=== PATIENT | male | born 1980 | race Caucasian/White ===

== ENCOUNTER 2019-06-05 16:50 | Inpatient (IN) | payer BC ==
[~2019-06-05] VITALS: Ht 190.5 cm; Wt 95.0 kg
[2019-06-05] VITALS (9 sets, daily range): BP systolic 140–149; BP diastolic 92–102
[2019-06-05] MEDS ORDERED: ketorolac trometh. 30mg/ml inj. IV ONE (17:40)
[2019-06-05] MEDS ORDERED: normal saline 1000ML IV soln IVB ONE (17:40)
[2019-06-05 17:45] LABS: BASOPHILS % (AUTO) 0.3 % (0-1); EOSINOPHILS # (AUTO) 0.2 X10'3 (0-0.9); EOSINOPHILS % (AUTO) 1.9 % (0-6); HEMATOCRIT 42.9 % (42.0-52.0); HEMOGLOBIN 15.2 g/dl (14.0-17.9); LYMPHOCYTES # (AUTO) 2.4 X10'3 (1.1-4.8); LYMPHOCYTES % (AUTO) 19.8 % (21-51); MEAN CORPUSCULAR HEMOGLOBIN 33.1 PG (27.0-31.0); MEAN CORPUSCULAR HGB CONC 35.3 g/dL (33.0-36.5); MEAN CORPUSCULAR VOLUME 93.5 FL (78-98); MEAN PLATELET VOLUME 8.9 FL (7.4-10.4); MONOCYTES # (AUTO) 0.7 X10'3 (0-0.9); MONOCYTES % (AUTO) 5.5 % (2-12); NEUTROPHILS # (AUTO) 8.9 X10'3 (1.8-7.7); NEUTROPHILS % (AUTO) 72.5 % (42-75); PLATELET COUNT 201 X10'3 (140-440); RED BLOOD COUNT 4.59 X10'6 (4.70-6.10); RED CELL DISTRIBUTION WIDTH 12.8 % (11.5-14.5); WHITE BLOOD COUNT 12.3 X10'3 (4.5-11.0)
[2019-06-05 17:48] LABS: CLARITY,URINE CLEAR (Clear); COLOR,URINE YELLOW (Yellow); GLUCOSE, URINE NEGATIVE (Neg); KETONES,URINE NEGATIVE (Neg); LEUKOCYTE ESTERASE ,URINE NEGATIVE (Neg); NITRITES, URINE NEGATIVE (Neg); OCCULT BLOOD,URINE NEGATIVE (Neg); PROTEIN,URINE NEGATIVE (Neg); UROBILINOGEN,URINE 0.2 E.U/dL (0.2-1.0)
[2019-06-05 17:49] LABS: UA COLLECTION TYPE CLN CATCH MIDSTREAM
[2019-06-05 17:59] LABS: ALANINE AMINOTRANSFERASE 54 U/L (12-78); ALBUMIN 3.8 G/DL (3.4-5.0); ALBUMIN/GLOBULIN RATIO 1.2 (1.1-1.5); ALKALINE PHOSPHATASE 135 IU/L (46-116); ANION GAP 1 (8-16); ASPARTATE AMINO TRANSFERASE 32 U/L (10-37); BILIRUBIN,TOTAL 0.4 MG/DL (0.1-1.0); BLOOD UREA NITROGEN 12 MG/DL (7-18); BUN/CREATININE RATIO 11.2 (5.4-32.0); CHLORIDE 106 MMOL/L (99-107); CREATININE 1.07 MG/DL (0.60-1.10); GLUCOSE 100 MG/DL (70-104); LIPASE 145 U/L (73-393); POTASSIUM 4.1 MMOL/L (3.5-5.1); SODIUM 140 MMOL/L (135-145); TOTAL CARBON DIOXIDE 33.3 MMOL/L (24-32); eGFR 78 ML/MIN
[2019-06-05] MEDS ORDERED: iohexol 300mg/ml 100ml inj. ONE (18:08)
--- NOTE | 2019-06-05 18:17 | NUR ---
PT OUT TO CT VIA WHEELCHAIR WITH COTTON WRINGER
[2019-06-05] MEDS ORDERED: piperacillin/tazo 3.375gm/50ml 50 ML IV ONE (19:05)
[2019-06-05] MEDS ORDERED: ondansetron/PF 4mg/2ml inj IV PRN ×3 (19:20→21:50)
[2019-06-05] MEDS ORDERED: morphine 2 MG/ML inj. syringe IV PRN ×2 (19:20)
[2019-06-05] MEDS: normal saline 1000ml 1,000 ML IV SCH (19:49)
[2019-06-05] MEDS ORDERED: NO HOME MEDS (19:50)
--- NOTE | 2019-06-05 20:01 | NUR ---
PT BROTHER Jennifer CHANG OFF UNIT PT GAVE HIM HIS WATCH CELL PHONE AND WALLET. PT BROTHER Jennifer SEYMOUR CONTACT IS Arielle HUERTA [phone]
[2019-06-05] MEDS ORDERED: fentaNYL/PF 50MCG/1 ML 2ML syringe ONE (20:16)
[2019-06-05] MEDS ORDERED: midazolam 2 mg/2 ml injection ONE (20:17)
[2019-06-05] MEDS ORDERED: propofol inj 20 ML IV ONE (20:17)
[2019-06-05] MEDS ORDERED: LIDOcaine 2% (20mg/ml) 5ml vial ONE (20:17)
[2019-06-05] MEDS ORDERED: BUPIVAcaine/PF 2.5 mg/ml (0.25%) 30ml vial ONE (20:25)
[2019-06-05] MEDS ORDERED: meperidine/PF 25mg/ml syringe IV PRN ×3 (20:25)
[2019-06-05] MEDS ORDERED: ringers solution, lacted 1,000 ML IV SCH (20:25)
[2019-06-05] MEDS ORDERED: proCHLORperazine 10 MG/2 ml inj IV PRN (20:25)
[2019-06-05] MEDS ORDERED: morphine 4 MG/ML inj SYRINge IV PRN ×2 (20:25)
[2019-06-05] MEDS ORDERED: neostigmine methylsulfate 1 MG/ML 10ml vial ONE (20:32)
[2019-06-05] MEDS ORDERED: glycopyrrolate 0.2mg/ml inj ONE (20:32)
[2019-06-05] MEDS ORDERED: acetaminophen 1000 MG/100ml vial IV ONE (20:32)
[2019-06-05] MEDS ORDERED: sevoflurane 250ml liquid IH ONE (20:32)
[2019-06-05] MEDS ORDERED: rocuronium 10mg/ml inj IV ONE (20:40)
[2019-06-05] MEDS ORDERED: ondansetron/PF 4mg/2ml inj ONE (20:40)
[2019-06-05] MEDS ORDERED: dexamethasone sod phosphate 4mg/ml inj. ONE (20:40)
--- NOTE | 2019-06-05 21:35 | NUR ---
Received from OR via , accompanied by Anesthesiologist TRIP and report given by Anesthesiolgist. AWAKE IN NO RESP DISTRESS SKIN WARM AND DRY HOB ELEVATED ABD SOFT DSG DI, NO CO PAIN. SCDS ON
[2019-06-05] MEDS ORDERED: HYDROcodone/acetaminophen 5mg/325mg tablet PO PRN (21:50)
--- NOTE | 2019-06-05 22:05 | NUR ---
Report called to receiving nurse. Transferred via BED Belongings . Special Issues communicated to receiving nurse.AWAKE VS WNL DSG DI, NO CO PAIN, THIRSTY. SCDS CONT. TO ROOM WITH BELONGING BAG AT FOOT OF BED.
--- NOTE | 2019-06-05 22:26 | NUR ---
PT ARRIVED TO UNIT ACCOMPANIED BY RECOVERY ROOM NURSE. VSS, IN NO APPARENT DISTRESS, BELONGINGS IN BED, VOIDED 975ML. BLL, CALL LIGHT IN REACH, 2X RAILS UP. SCDS ON, WILL CONTINUE TO MONITOR
[2019-06-05] MEDS: HYDROcodone/acetaminophen 10/325mg tab PO PRN (22:43)
[2019-06-06] VITALS: BP 142/95
[2019-06-06] MEDS: piperacillin/tazo 3.375gm/50ml 50 ML IV SCH ×2 (00:17→07:35)
[2019-06-06 01:00] VITALS: BP 143/99
[2019-06-06 02:00] VITALS: BP 142/95
[2019-06-06] MEDS: normal saline 1000ml 1,000 ML IV SCH (05:47)
--- NOTE | 2019-06-06 05:47 | NUR ---
pt ambulated 4 laps around unit. 1200ft
--- NOTE | 2019-06-06 06:55 | NUR ---
Patient in room [facility]. I have received report from Long AYOUB and had the opportunity to ask questions and assume patient care.
[2019-06-06] MEDS ORDERED: FLU VACC QS2019-20 36MOS UP/PF 60 MCG/0.5 ML SYRINGE IMVAC ONE (10:00)
[2019-06-06 10:06] VITALS: BP 113/67
[2019-06-06] MEDS ORDERED: DEXT20TA6 PO (10:21)
[2019-06-06] MEDS ORDERED: ACET-2119 PO (11:34)
[2019-06-06] MEDS ORDERED: METR-159 PO (11:35)
[2019-06-06] MEDS ORDERED: OMEP-297 PO (12:49)
[2019-06-06] MEDS ORDERED: CIPR-259 PO (12:52)
[2019-06-06] MEDS ORDERED: IBUP-1984 PO (12:52)
[2019-06-06] MEDS: HYDROcodone/acetaminophen 10/325mg tab PO PRN (13:17)
--- NOTE | 2019-06-06 15:14 | NUR ---
patient D/C' d home by DR Shafer. Pt in stable condition, alert and oriented x3. Discharge and medication instructions given to patient. IV removed. pt escorted downstairs. left hospital via private vehicle accompanied of .
[2019-06-06] MEDS ORDERED: lactobacillus rhamnosus 10,000 MMU CELLS/CAPSULE PO SCH (20:00)
== END 2019-06-06 13:33 | disposition home or self-care (01) | DRG 343 ==
LOC: ER 16:50 → ED HOLD 19:18 → SUR 3N 22:05
PROVIDERS: ADMIT Internal Medicine; ATTEND Internal Medicine
PROC: BW211ZZ Computerized Tomography (CT Scan) of Abdomen and Pelvis using Low Osmolar Contrast (ICD-10-PCS; 2019-06-05)
PROC: 0DTJ4ZZ Resection of Appendix, Percutaneous Endoscopic Approach (ICD-10-PCS; principal; 2019-06-05 20:32)
PROC: 3E02340 Introduction of Influenza Vaccine into Muscle, Percutaneous Approach (ICD-10-PCS; 2019-06-06)
DX: K35.80 Unspecified acute appendicitis (principal); G47.33 Obstructive sleep apnea (adult) (pediatric); Z82.49 Family history of ischemic heart disease and other diseases of the circulatory system; Z23 Encounter for immunization
CPT/HCPCS: 96374; 96375; 99285; Z7506; Z7508; 36415; 74177; 80053; 81003; 83690; 85025; 87081; A4215; A4618; A7000; G0378; J0131; J1100; J1885; J2001; J2175; J2250; J2405; J2543; J2704; J2710; J3010; J3490; J7030; J7120; Q2037; Q9967